=== PATIENT | male | born 1955 | race Caucasian/White ===

== ENCOUNTER → 2020-11-04 | Outpatient (CLI) | payer OTHER | LOC: EXRD 09:47 | DX: Z13.6 Encounter for screening for cardiovascular disorders (principal) | CPT/HCPCS: 76706 ==

== ENCOUNTER → 2021-05-25 | Outpatient (CLI) | payer OTHER | LOC: HEART 5 12:51 | DX: R06.02 Shortness of breath (principal); I08.8 Other rheumatic multiple valve diseases | CPT/HCPCS: 93306 ==